=== PATIENT | male | born 1940 | race Caucasian/White ===

== ENCOUNTER 2020-06-14 12:39 | Emergency (ER) | payer MEDICARE, SELFPAY ==
[2020-06-14] VITALS (8 sets, daily range): BP systolic 77–100; BP diastolic 58–81; PULSE 98–136; RESP 15–26; TEMP 36.4–37.1; O2SAT 95–99
--- NOTE | ~2020-06-14 | CT_ITS ---
EXAMINATION: CT chest abdomen pelvis wo con DATE: 06/14/2020 14:02 INDICATION: Abdominal pain. Altered mental status. TECHNIQUE: Computed tomography (CT) of the chest, abdomen, and pelvis was performed without intraveno us contrast. Automated exposure control and iterative reconstruction technique were employed. The dos e-length product was 1693.67 mGy-cm. COMPARISON: CT abdomen and pelvis 06/13/2011 FINDINGS: CHEST CT: A calcified right lung nodule and calcified right hilar and mediastinal lymph nodes are consistent wi th old granulomatous disease. There is mild atelectasis bilaterally. Cardiomegaly is noted. There are changes of mitral valve replacement. There are coronary artery calcifications. There are changes of coronary bypass grafting. No pericardial effusion. There is a small sliding hiatal hernia. There are bridging endplate osteophytes at multiple levels in the spine, consistent with diffuse idiopathic ske letal hyperostosis (DISH). ABDOMEN/PELVIS CT: There is diffuse hepatic steatosis. The gallbladder, spleen, pancreas, adrenal glands, and kidneys ar e normal. There is an 8.3 cm fusiform infrarenal aortic aneurysm with surrounding hematoma in the ret roperitoneum, predominantly on the right, consistent with rupture. The prostate is mildly enlarged. T here is diverticulosis of the colon without evidence of diverticulitis. There are no dilated loops of bowel. The appendix is normal. There are no pathologically enlarged lymph nodes. There is a small vo lume of hemoperitoneum in the pelvis and right paracolic gutter. There is severe lumbar spondylosis. IMPRESSION: 1. 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 I called this result to Dr. Kenny. Reviewed, dictated and finalized at location A. SHOP SUPERVISOR
--- NOTE | ~2020-06-14 | CT_ITS ---
EXAMINATION: CT brain wo con DATE: 06/14/2020 14:02 INDICATION: Altered mental status. TECHNIQUE: Computed tomography (CT) of the head was performed without intravenous contrast. The mA wa s adjusted according to patient size. Iterative reconstruction technique was employed. The dose-lengt h product was 605.33 mGy-cm. COMPARISON: None FINDINGS: There are scattered areas of low attenuation in the cerebral white matter. There are old la cunar infarcts in the bilateral basal ganglia. There is no intracranial hemorrhage, acute infarction, or abnormal intracranial mass lesion. The ventricles are normal in size. There are likely changes of ocular lens replacement surgeries. There is mucosal thickening in the paranasal sinuses. There is a trace left mastoid effusion. IMPRESSION: 1. Old lacunar infarcts in the bilateral basal ganglia. 2. Extensive nonspecific cerebral white matter disease, which likely represents chronic small vessel ischemic disease. Reviewed, dictated and finalized at location A. COLORIST
--- NOTE | 2020-06-14 12:55 | ED.AMS ---
HPI - Altered Mental Status General Chief Complaint: Altered Mental Status Stated Complaint: AMS Time Seen by Provider: 06/14/20 12:51 Source: EMS Mode of arrival: EMS Limitations: altered mental status History of Present Illness HPI narrative: Patient is an 79-year-old male brought in by EMS due to altered mental status. Patient is nonverbal. According to EMS told him that he was last known well 3 days ago and started to deteriorate from then on, described as weakness. EMS states that when they picked the patient up his oxygen sat was in the 70s was placed on nonrebreather and brought the saturating back up to 90s. Patient is nonverbal unable to get any history from the patient. Patient is on an oral anticoagulant, Eliquis. Related Data Home Medications Medication Instructions Recorded Confirmed apixaban [Eliquis] 5 mg PO 06/14/20 atorvastatin 80 mg PO DAILY 06/14/20 lisinopril 10 mg PO DAILY 06/14/20 Allergies Allergy/AdvReac Type Severity Reaction Status Date / Time nickel AdvReac Intermediate Rash Verified 06/14/20 14:08 Chocolate Allergy Intermediate Diarrhea Uncoded 06/14/20 14:08 Review of Systems Review of Systems: ROS unobtainable: Yes unobtainable due to mental status PMFSH Family History Family History Father Cerebrovascular accident Mother Family history of cardiac disorder Other Asthma Family history of allergic disorder Family history of cardiovascular disease Family history of malignant neoplasm Social History Social History Alcohol intake: current Gender identity (if verbalized by the patient): Male Exam Const: General: no acute distress, alert and awake Other: Moderate distress, alert and awake HENMT: Head: normal to inspection, no contusions, no hematomas and no lacerations Ears: external ears normal General nose exam: Normal external nose present, Normal nares present and No nasal discharge present Face and sinus: normal facial exam Mouth: Yes Normal oral and palatal mucosa present, Yes lip normal, Yes tongue normal and Yes oropharynx normal Throat: posterior oropharynx normal, tonsils normal and uvula midline Eyes: General: appearance normal, both eyes and all related structures Pupils: Equal, round and reactive pupils present EOM: EOMs intact bilaterally Neck: Neck: normal visual inspection, full ROM, no lymphadenopathy and no meningeal signs Chest: Chest palpation & inspection: normal inspection of the chest Resp: Effort & Inspection: normal respiratory effort, able to speak in complete sentences, no respiratory distress, no retractions, tachypneic (Mild) and no use of accessory muscles Auscultation: clear to auscultation bilaterally, no crackles, no rales, no rhonchi, no wheezes and breath sounds absent Cardio: Rate: tachycardic Rhythm: abnormal rhythm irregularly irregular GI: Inspection: normal to inspection GI Palp: No abdominal tenderness, Yes Soft to palpation, No Tenderness to palpation present (GI), No Guarding due to palpation present (GI), No Rigid due to palpation and No Rebound tenderness present Auscultation: normal bowel sounds Skin: General skin exam: normal color, no rashes or lesions noted, elasticity normal and turgor normal Neuro: General: tone normal, moves all extremities and No confusion Cranial nerves: Yes Equal, round and reactive pupils present Sensory Exam: No Sensory deficit (Neuro) Other: Patient is nonverbal unable to follow any commands Extrem: General: normal to inspection, full ROM and capillary refill normal Psych: Appearance: grossly normal and well kempt Course Course Emergency Course: Patient reexamined now alert and awake states that he was having some abdominal pain pain and back pain that started 3 days ago. Vital Signs Vital signs: Vital Signs Temperature 36.6 C 06/14/20 12:41 Pulse Rate 129
[2020-06-14 14:05] LABS: Basophils Percent Auto 0.3 % (0.2-1.2); Eosinophils Percent Auto 0.1 % (0-4.4); Hematocrit 36.1 % (42.0-52.0); Immature Granulocyte Absolute 0.19 K/mm3 (0.00-0.031); Immature Granulocyte Percent A 1.7 % (0-0.5); Lymphocytes Absolute Auto 0.85 K/mm3 (0.9-3.2); Lymphocytes Percent Auto 7.6 % (18.3-44.2); Mean Corpuscular HGB Conc 33.2 g/dl (32-36); Mean Corpuscular Volume 102.3 fl (80-100); Mean Platelet Volume 10.4 fl (7.4-10.4); Monocytes Absolute Auto 0.6 K/mm3 (0.1-0.6); Monocytes Percent Auto 5.4 % (2.6-8.5); Neutrophils Absolute Auto 9.5 K/mm3 (1.3-6.7); Neutrophils Percent Auto 84.9 % (45.5-73.1); Platelet Count Result 167 k/mm3 (150-375); Red Blood Count 3.53 M/mm3 (4.6-6.20); Red Cell Distribution Width 12.4 % (11.5-14.5); White Blood Count 11.2 K/mm3 (4.5-10.0)
--- NOTE | 2020-06-14 14:09 | PC.NURSE ---
called [facility] evac to see if a helicopter was available to transfer patient. [facility] evac is now on standby
--- NOTE | 2020-06-14 14:14 | PC.NURSE ---
Pt maintain O2 above 98% on non rebreather, switched to NC at 4 L.
[2020-06-14 14:17] LABS: INR 1.2
[2020-06-14 14:18] LABS: Partial Thromboplastin Time 30.1 SECONDS (22.3-36.8)
[2020-06-14 14:21] LABS: Lactic Acid Reflex 8.3 mmol/L (0.7-2.1)
[2020-06-14 14:23] LABS: Albumin Level 3.8 g/dL (3.5-5.1); Alkaline Phosphatase 55 U/L (38-126); Anion Gap 16 mmol/L (8-16); Aspartate Amino Transferase 42 U/L (17-59); Bilirubin,Total 1.6 mg/dL (0.2-1.3); Blood Urea Nitrogen 25 mg/dL (9-20); CRP 4.7 mg/dL (<1.0); Calcium 8.2 mg/dL (8.4-10.2); Carbon Dioxide 18 mmol/L (22-30); Chloride 103 mmol/L (98-107); Estimated CRCL calculation 35 ml/min; Estimated Glomerular Filt Rate 36; Glucose 213 mg/dL (75-110); Sodium 137 mmol/L (137-145)
[2020-06-14 14:26] LABS: Alanine Aminotransferase 36 U/L (4-50)
[2020-06-14 14:37] LABS: Add Urine Microscopic? YES; Appearance Urine Clear (Clear); Bilirubin Urine Negative (Negative); Blood Urine 1+ (Negative); Color Urine Yellow (Yellow); Glucose Urine UA Negative (Negative); Ketones Urine Negative (Negative); Leukocyte Esterase Ur Negative LEU/UL (Negative); Mucus Urine Rare /lpf; Nitrate Urine Negative (Negative); Protein Urine 2+ mg/dL (Negative); RBC Urine 21-50 /hpf (0-2); Specific Grav Ur 1.025 (1.001-1.035); Urobilinogen Urine Negative mg/dL (<2.0); WBC Urine 0-3 /hpf
--- NOTE | 2020-06-14 14:41 | PC.NURSE ---
has accepted patient at [facility] is on their way
[2020-06-14] MEDS: HUMAN PROTHROMBIN COMPLEX(PCC) 2,500 UNITS in PREMIXIV 0 ML 500 UNITS IV CONT (14:54)
[2020-06-14] MEDS: TUBING, BLOOD SET 1 EACH XX (14:55)
[2020-06-14] MEDS: SODIUM CHLORIDE 0.9% IV 250 ML 30 ML (14:55)
--- NOTE | 2020-06-14 15:00 | ECG_ITS ---
Measurements Intervals [place] Rate: 125 P: [place]: 0 QRS: 47 QRSD: 82 T: 33 QT: 307 QTc: 444 Interpretive Statements ATRIAL FLUTTER/TACHYCARDIA WITH RAPID VENTRICULAR RESPONSE VENTRICULAR PREMATURE COMPLEXES BORDERLINE ST-T WAVE ABNORMALITY- DIFFUSE LEADS ABNORMAL ECG Electronically Signed On 06-14-2020 15:07:00 CUSTOMER SERVICE SALES CONSULTANT by Ezekiel Zacarias D.O.
[2020-06-14 17:03] LABS: Reflex Lactic Acid Yes or No Add Lactic
== END 2020-06-14 15:24 | disposition short-term general hospital (02) ==
PROVIDERS: Emergency Provider Emergency Medicine; PCP Family Medicine
DX: I71.3 Abdominal aortic aneurysm, ruptured (principal); R41.82 Altered mental status, unspecified; Z79.01 Long term (current) use of anticoagulants
CPT/HCPCS: 36415; 36430; 51702; 70450; 71250; 74176; 80053; 81001; 83605; 85025; 85610; 85730; 86140; 86920; 87040; 93005; 96361; 96365; 96367; 99291; C9132; J0696; J7050; J7120; P9016

== ENCOUNTER 2021-01-18 12:53 | Outpatient (CLI) | payer MEDICARE, SELFPAY ==
[2021-01-18 13:41] LABS: Hematocrit 39.9 % (42.0-52.0); Hemoglobin 13.1 g/dL (14.0-18.0); Mean Corpuscular HGB Conc 32.8 g/dl (32-36); Mean Corpuscular Hemoglobin 32.1 pg (26-34); Mean Corpuscular Volume 97.8 fl (80-100); Mean Platelet Volume 10.3 fl (7.4-10.4); Platelet Count Result 159 k/mm3 (150-375); Red Blood Count 4.08 M/mm3 (4.6-6.20); Red Cell Distribution Width 13.6 % (11.5-14.5); White Blood Count 5.7 K/mm3 (4.5-10.0)
[2021-01-18 14:00] LABS: Alanine Aminotransferase 17 U/L (4-50); Albumin Level 4.1 g/dL (3.5-5.1); Alkaline Phosphatase 76 U/L (38-126); Anion Gap 6 mmol/L (8-16); Aspartate Amino Transferase 25 U/L (17-59); Bilirubin,Total 0.8 mg/dL (0.2-1.3); Blood Urea Nitrogen 28 mg/dL (9-20); Calcium 9.4 mg/dL (8.4-10.2); Carbon Dioxide 29 mmol/L (22-30); Chloride 107 mmol/L (98-107); Estimated Glomerular Filt Rate 58; Glucose 109 mg/dL (65-110); Potassium 3.9 mmol/L (3.4-5.0); Sodium 142 mmol/L (137-145)
== END 2021-01-18 12:54 | disposition home or self-care (01) ==
PROVIDERS: PCP Family Medicine; Visit Provider Internal Medicine Cardiovascular Disease
DX: I25.10 Atherosclerotic heart disease of native coronary artery without angina pectoris (principal)
CPT/HCPCS: 36415; 80053; 85027

== ENCOUNTER 2022-10-23 15:48 | Outpatient (CLI) | payer MEDICARE, SELFPAY ==
[2022-10-23 16:42] LABS: Hematocrit 41.6 % (42.0-52.0); Hemoglobin 13.8 g/dL (14.0-18.0); Mean Corpuscular HGB Conc 33.2 g/dl (32-36); Mean Corpuscular Hemoglobin 32.9 pg (26-34); Mean Corpuscular Volume 99.3 fl (80-100); Mean Platelet Volume 10.3 fl (7.4-10.4); Platelet Count Result 153 k/mm3 (150-375); Red Blood Count 4.19 M/mm3 (4.6-6.20); White Blood Count 6.9 K/mm3 (4.5-10.0)
[2022-10-23 16:54] LABS: Alanine Aminotransferase 22 U/L (6-50); Albumin Level 4.3 g/dL (3.5-5.1); Alkaline Phosphatase 71 U/L (38-126); Anion Gap 7 mmol/L (8-16); Aspartate Amino Transferase 29 U/L (17-59); Bilirubin,Total 0.7 mg/dL (0.2-1.3); Blood Urea Nitrogen 31 mg/dL (9-20); Calcium 8.9 mg/dL (8.4-10.2); Carbon Dioxide 28 mmol/L (22-30); Chloride 106 mmol/L (98-107); Cholesterol 137 mg/dL (0-200); Estimated Glomerular Filt Rate > 60; Glucose 101 mg/dL (65-110); HDL Direct 39 mg/dL; Potassium 4.7 mmol/L (3.4-5.0); Sodium 141 mmol/L (137-145); Triglycerides 125 mg/dL (<150)
[2022-10-23 17:05] LABS: LDL Cholesterol Direct 73 mg/dL
== END 2022-10-23 15:49 | disposition home or self-care (01) ==
LOC: ANHLAB 15:50
PROVIDERS: PCP Family Medicine; Visit Provider Internal Medicine Cardiovascular Disease
DX: I25.10 Atherosclerotic heart disease of native coronary artery without angina pectoris (principal); Z79.01 Long term (current) use of anticoagulants
CPT/HCPCS: 36415; 80053; 80061; 85027

== ENCOUNTER 2023-03-14 14:10 | Outpatient (CLI) | payer MEDICARE, SELFPAY ==
--- NOTE | ~2023-03-14 | US_ITS ---
Procedure: Duplex Doppler examination of the bilateral carotids. Indication: Amaurosis fugax Technique: Real time, color-flow and pulse wave Doppler examination of the bilateral carotids was performed. Findings: Lin scale ultrasonography of the right neck demonstrated minimal plaque at the right carotid bulb re gion. There was demonstration of normal color-flow and Doppler waveforms within the right common, int ernal and external carotid arteries. The peak systolic velocities in the right common, internal and e xternal carotid arteries were demonstrated to be 85 cm/sec, 63 cm/sec and 92 cm/sec respectively. The right ICA/CCA ratio was 0.7.The proximal right internal carotid artery demonstrates 0% stenosis rela tive to the normal distal artery lumen diameter. Lin scale sonography of the left neck demonstrated minimal plaque at the proximal left internal bach tid artery/carotid bulb. There was demonstration of normal color-flow and wave forms within the left common, internal and external carotid arteries. The peak systolic velocities in the left common, inte rnal and external carotid arteries were demonstrated to be 67cm/sec, 80 cm/sec and 126 cm/sec respect ively. The left ICA/CCA ratio was 1.3. The proximal left internal carotid artery demonstrates 0% sten osis relative to the normal distal artery lumen diameter. Incidental note is made of a 4.7 x 2.7 x 3.2 cm lobulated, hypoechoic predominantly solid mass in the right parotid gland with small cystic components. There is a similar appearing mass in the left paro tid gland, measuring 2.6 x 1.7 x 1.9 cm. There was antegrade flow demonstrated in the bilateral vertebral arteries. Impression: No hemodynamically significant stenosis of the bilateral internal carotid arteries. Antegrade flow in the bilateral vertebral arteries. Bilateral parotid gland masses, as detailed above. Bilaterality and sonographic appearance is most crawford ggestive of bilateral Warthin's tumors. Note: The methodology used is an indirect measurement validated against a direct method (such as the NASCET criteria) that compares diameters at the stenosis to the distal ICA. Reviewed, dictated and finalized at [facility]. Impression: No hemodynamically significant stenosis of the bilateral internal carotid arter ies. Antegrade flow in the bilateral vertebral arteries. Bilateral parotid gland masses, as detailed above. Bilaterality and sonographic appearance is most suggestive of bilateral Warthin's tumors. Note: The methodology used is an indirect measurement validated against a direct meth od (such as the NASCET criteria) that compares diameters at the stenosis to the distal ICA.
== END 2023-03-14 14:11 | disposition home or self-care (01) ==
PROVIDERS: PCP Family Medicine; Visit Provider Nurse Practitioner Adult Health
DX: G45.3 Amaurosis fugax (principal)
CPT/HCPCS: 93880

== ENCOUNTER 2024-09-12 02:18 | Emergency (ER) | payer MEDICARE, SELFPAY ==
[2024-09-12] VITALS (18 sets, daily range): BP systolic 132–186; BP diastolic 83–119; PULSE 75–89; RESP 13–22; TEMP 36.9–37; O2SAT 95–100
--- NOTE | ~2024-09-12 | CT_ITS ---
CT head without contrast Indication: Weakness Technique: Serial scans were obtained through the brain without the administration of contrast. Dose reduction technique was used on this scan by utilizing automated exposure control and iterative recon struction technique. The dose-length product (DLP) was 681.00 mGy-cm. Findings: There is no evidence of intracranial hemorrhage, mass lesion, or acute infarct. The ventri cles and subarachnoid spaces are dilated, consistent with mild atrophy. Low attenuation regions are seen within the periventricular white matter bilaterally, likely representing changes from chronic mi crovascular ischemic disease. There is no evidence of edema, mass effect or midline shift. The visu alized paranasal sinuses and mastoid air cells are clear. Impression: No intracranial hemorrhage, mass, or acute infarct. Atrophy and chronic white matter changes, as above. Reviewed, dictated and finalized at location . Impression: No intracranial hemorrhage, mass, or acute infarct. Atrophy and chronic white matter changes, as above.
--- NOTE | ~2024-09-12 | CT_ITS ---
Noncontrast CT scan of the cervical spine Technique: Multiple contiguous axial [address] images of the cervical spine were obtained and rec onstructed in 2D sagittal and coronal planes on the acquisition scanner. Dose reduction technique was used on this scan by utilizing automated exposure control, adjustment of the mA and/or kV according to patient size. The dose-length product (DLP) was 525.84 mGy-cm. Clinical History: Pain Findings: No acute fracture. There is partial fusion across the C2-C3 disc space. There is advanced degenerative disc narrowing at C3-C4, C6-C7, and C7-T1. There is minimal grade 1 anterolisthesis of C 4 over C5. There is severe left neural foraminal narrowing at C3-C4 left facet arthropathy and left f oraminal disc osteophyte complex. There is left neural foraminal narrowing at C4-C5, left foraminal o steophyte and left facet arthropathy worse than right. There is severe right neural foraminal narrowi ng at C5-C6, with right foraminal osteophyte complex and right facet arthropathy worse than left. The re is bilateral neural foraminal narrowing, right worse than left, at C6-C7, with bilateral facet art hropathy. No prevertebral soft tissue swelling. Impression: No acute fracture. Minimal grade 1 anterolisthesis of C4 over C5. Severe degenerative spondylosis, as above. Reviewed, dictated and finalized at [facility]. Impression: No acute fracture. Minimal grade 1 anterolisthesis of C4 over C5. Severe degenerative spondylosis, as above.
--- NOTE | ~2024-09-12 | CT_ITS ---
Clinical Indication: Weakness, elevated troponin CT Scan of the Chest, Abdomen, and Pelvis with Contrast: Technique: Contiguous sections were acquired throughout the chest, abdomen, and pelvis after intraven ous administration of 100 cc of Omnipaque 350. Dose reduction technique was used on this scan by nadir key automated exposure control and iterative reconstruction technique. The dose-length product (DL P) was 1996.62 mGy-cm. Findings: There is no evidence of any significant mediastinal, hilar or axillary lymphadenopathy. The mediastin al soft tissues appear normal. No pulmonary embolus. No aortic aneurysm or dissection. There is no evidence of pleural or pericardial effusion. The lungs are clear, aside from calcified right basilar granuloma. The liver, spleen, pancreas, adrenals and kidneys are within normal limits. Suspected tiny gallstones and/or minimal sludge. There is a 10.9 cm infrarenal abdominal aortic aneurysm with aortic stent gra ft in place. Small amount of contrast is present within the aneurysm sac posteriorly (axial image 97 for example), suspicious for endoleak. No lymphadenopathy. No bowel obstruction or bowel wall thickening. There is no evidence to suggest acute appendicitis. Diffuse urinary bladder wall thickening is compatible chronic trabeculation. Prostate gland is enlarg ed, indenting the bladder base. Posterior left urinary bladder diverticulum is present. Impression: 10.9 cm infrarenal abdominal aortic aneurysm with aortic stent graft in place. Aneurysm sac is signif icantly increased in size since prior exam from 2020, with evidence of endoleak. Dedicated endoleak e valuation recommended. Minimal cholelithiasis/gallbladder sludge. Enlarged prostate gland with probable chronic bladder wall trabeculation. Correlate for cystitis. Reviewed, dictated and finalized at [facility]. Impression: 10.9 cm infrarenal abdominal aortic aneurysm with aortic stent graft in place. Aneurysm sac is significantly increased in size since prior exam from 2020, wit h evidence of endoleak. Dedicated endoleak evaluation recommended. Minimal cholelithiasis/gallbladder sludge. Enlarged prostate gland with probable chronic bladder wall trabeculation. Corre late for cystitis.
--- NOTE | ~2024-09-12 | XR_ITS ---
Portable chest x-ray Comparison: 08/12/2010 Clinical History: Weakness Findings: Lungs are clear, without focal consolidation or pleural effusion. Cardiomediastinal silho uette is nonenlarged, status post valve replacement. Bones and soft tissues are unremarkable. Impression: Clear lungs. Reviewed, dictated and finalized at location . Impression: Clear lungs.
--- NOTE | 2024-09-12 02:31 | ECG_ITS ---
Test Date: 2024-09-12 04:40:19 Measurements Intervals [place] Rate: 82 P: 0 ND: 0 QRS: 66 QRSD: 87 T: 0 QT: 394 QTc: 461 Interpretive Statements ATRIAL FLUTTER WITH NORMAL VENTRICULAR RESPONSE LEFT VENTRICULAR HYPERTROPHYWITH ST-T CHANGE CANNOT R/O SEPTAL INFARCT, AGE INDETERMINATE ABNORMAL ECG No previous ECG available for comparison Electronically Signed On 09-12-2024 06:27:36 CDT by Ezekiel Zacarias D.O.
[2024-09-12 03:01] LABS: Basophils Percent Auto 0.4 % (0.2-1.2); Eosinophils Absolute Auto 0.1 K/mm3 (0-0.3); Eosinophils Percent Auto 0.6 % (0-4.4); Hematocrit 37.2 % (42.0-52.0); Hemoglobin 12.3 g/dL (14.0-18.0); Immature Granulocyte Absolute 0.03 K/mm3 (0.00-0.031); Immature Granulocyte Percent A 0.3 % (0-0.5); Lymphocytes Absolute Auto 0.57 K/mm3 (0.9-3.2); Lymphocytes Percent Auto 5.8 % (18.3-44.2); Mean Corpuscular HGB Conc 33.1 g/dl (32-36); Mean Corpuscular Hemoglobin 31.8 pg (26-34); Mean Corpuscular Volume 96.1 fl (80-100); Mean Platelet Volume 10.5 fl (7.4-10.4); Monocytes Absolute Auto 0.8 K/mm3 (0.1-0.6); Monocytes Percent Auto 8.1 % (2.6-8.5); Neutrophils Absolute Auto 8.3 K/mm3 (1.3-6.7); Neutrophils Percent Auto 84.8 % (45.5-73.1); Platelet Count Result 172 k/mm3 (150-375); Red Blood Count 3.87 M/mm3 (4.6-6.20); Red Cell Distribution Width 13.3 % (11.5-14.5); White Blood Count 9.8 K/mm3 (4.5-10.0)
[2024-09-12 03:09] LABS: Lactic Acid Reflex 1.1 mmol/L (0.7-2.0)
[2024-09-12 03:10] LABS: Alanine Aminotransferase 40 U/L (6-50); Albumin Level 3.8 g/dL (3.5-5.1); Alkaline Phosphatase 71 U/L (38-126); Anion Gap 12 mmol/L (4-12); Aspartate Amino Transferase 81 U/L (17-59); Blood Urea Nitrogen 53 mg/dL (9-20); Carbon Dioxide 23 mmol/L (22-30); Chloride 105 mmol/L (98-107); Estimated Glomerular Filt Rate 33; Glucose 132 mg/dL (65-110); Lipase 42 U/L (23-300); Magnesium 1.9 mg/dL (1.6-2.3); Sodium 140 mmol/L (137-145)
--- OUTSIDE RECORDS SUMMARY | 2024-09-12 03:10 | XMS_ITS | Clinical Summary ---
Author Organization [facility] [address] Address [address] [place] [address] Care Team Providers Care Public Address Servicer Name Role Phone Carmela Whitney MD Primary Care Provider + Allergies Active Allergy Reactions Criticality Noted Date Comments Chocolate Other (See comments) Low Reaction: CONGESTION, Mold Shortness of breath High 12/11/2016 Per patient, asthmatic shock. Nickel Rash Medium Reaction: RASH Medications potassium 99 mg tablet take 1 by Oral route every day 0 0 08/17/2014 Active apixaban (ELIQUIS) 5 mg tabletIndication s:Typical atrial flutter (HCC) Take 1 tablet (5 mg total) by mouth 2 (two) times a day. 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 Dizziness 03/28/2017 Bradycardia 03/28/2017 Assessment & Plan (04/17/2017 8:46 PM PRODUCTION GEAR CUTTER): Has had some episodic mild bradycardia but home monitor did not show any severe bradycardia. Episodic dizziness but this is mostly positional. Permanent atrial fibrillation 12/11/2016 Assessment & Plan (04/17/2017 8:46 PM PRODUCTION GEAR CUTTER): Patient has atrial fibrillation and some AFib/flutter, with a heart rate that is actually better than what I feared from last office visit. Average heart rate in the 80s. May be mildly symptomatic. Offered cardioversion to see if we can restore sinus rhythm and if that would help patient feel better. We could also continue current therapy, or again refer for ablation of atrial flutter. Patient does not want any procedures as invasive as ablation. He decided he would prefer to continue current therapy as he could manage pretty well. Assessment & Plan (12/11/2016 7:53 PM CDT): New onset atrial flutter, an incidental finding during echo exam today. EKG today confirms typical atrial flutter, heart rate 81, nonspecific ST changes. Heart rate is controlled. Although the patient is feeling poor in general, I do not elicit symptoms of dyspnea, heart failure, palpitations etc so I suspect his symptoms are not related to the atrial flutter. Thus I will not pursue cardioversion at this time. However he is at risk of cardioembolic events and needs anticoagulation. All this was reviewed with the patient including risks and benefits of anticoagulation. I wonder if he is a candidate for atrial flutter ablation? 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 Obstructive sleep apnea syndrome 02/23/2016 Overview (09/06/2016): WALTER (obstructive sleep apnea) Coronary artery disease invo lving [place] coronary artery of [place] heart without angina pectoris 02/23/2016 Overview (09/06/2016): CAD in [place] artery Assessment & Plan (04/17/2017 8:48 PM PRODUCTION GEAR CUTTER): History of CABG, doing well, no angina. Normal LV function. Assessment & Plan (12/11/2016 7:49 PM CDT): 2013:: MILES to LAD at the time of mitral valve repair Coronary artery disease is unchanged. No angina. Regular aerobic exercise. Cardiac status will be reassessed in 1 month. Hx of CABG 02/23/2016 Overview (09/07/2016): Hx of CABG Hypertensive heart disease without congestive he art failure 02/23/2016 Overview (09/07/2016): Hypertensive heart disease without CHF Assessment & Plan (12/11/2016 7:50 PM CDT): BP running a little high today History of diastolic dysfunction and LVH Hypercholesterolemia 02/23/2016 Overview (09/07/2016): Hypercholesteremia Assessment & Plan (04/17/2017 8:49 PM PRODUCTION GEAR CUTTER): Takes atorvastatin Assessment & Plan (12/11/2016 7:51 PM CDT): 03/2016: Cholesterol 150, LDL 82; I increased atorvastatin after that. Noncompliance with treatment 02/23/2016 Overview (09/07/2016): Noncompliance H/O mitral valve repair 08/25/2013 Overview (09/06/2016): H/O mitral valve repair Assessment & Plan (04/17/2017 8:48 PM PRODUCTION GEAR CUTTER): 2014: Successful mitral valve repair Echo 2017: Intact mitral valve repair, EF 65% Assessment & Plan (12/11/2016 7:48 PM CDT): Two thousand fourteen: Successful mitral valve repair Echo today: Intact mitral valve repair, EF 65% Mitral valve insufficiency 05/13/2013 Chronic obstructive pulmonary disease 04/14/2013 Overview (09/06/2016): COPD (chronic obstructive pulmonary disease) Resolved Problems Problem Noted Date Diagnosed Date Resolved Date Visual field defect 07/02/2023 07/02/19 24 Dizziness 11/06/2018 11/06/2018 History of heart valve repair 02/23/2016 03/28/2017 Overview (09/06/2016): S/P MVR (mitral valve repair) Altered mental status 02/23/20162016 Overview (09/07/2016): Altered mental status, unspecified altered mental status type Hyperlipidemia 08/17/2014 03/28/2017 Overview (09/07/2016): Hyperlipidemia Encounters Date Type Department Care Team Description 07/10/2024 2:00 PM PRODUCTION GEAR CUTTER Office Visit [facility] [address] [place] [address] Jeremy Russo MD Coronary artery disease involving [place] coronary artery of [place] heart without angina pectoris (Primary Dx); H/O mitral valve repair; Hx of CABG; Permanent atrial fibrillation (HCC); Chronic anticoagulation; Ruptured abdominal aortic aneurysm (AAA), unspecified part (HCC); History of repair of aneurysm of abdominal aorta using endovascular stent graft; Hypercholesterolemia; Essential hypertension from Last 3 Months Surgical History Surgery Date Site/Laterality Comments HERNIA REPAIR Hernia repair Medical History Medical History Date Comments Hx Other Medical COPD: Asthma an d Emphysema, Dr. Suarez Hx Other Medical Sleep Apnea, CP AP Family History Medical History Relation Name Comments Other Father SVA and aneurys m; Cause of : SVA and aneurysm Other Mother Old age; Cause of : Old age Other Sister 2 Older sister werner s ICD; Other Sister 3 Has mental anali rdation and now Alzheimer's; Relation Name Status Comments Father (Age 64) Mother (Age 84) Sister 1 Alive Sister 2 Sister 3 Social History Tobacco Use Types Packs/Day Years Used Date Smoking Tobacco: Former Smokeless Tobacco: Never Tobacco Cessation:Counseling Given: Not Answered Alcohol Use Standard Drinks/Week Comments Yes 0 (1 standard drink = 0.6 oz pur e alcohol) 2 drinks per week maximum Sex and Gender Information Value Date Recorded Sex Assigned at Not on file Legal Sex Male 7:26 PM PRODUCTION GEAR CUTTER Gender Identity Not on file Sexual Orientation Not on file Obstetrics History Last Filed Vital Signs Vital Sign Reading Time Taken Comments Blood Pressure 140/70 07/10/2024 2:12 PM PRODUCTION GEAR CUTTER Pulse 48 07/10/2024 2:12 PM PRODUCTION GEAR CUTTER Temperature 37 C (98.6 F) 01/20/2020 11:15 AM CDT Respiratory Rate 96 12/25/2022 2:42 PM CDT Oxygen Saturation 97% 07/10/2024 2:12 PM PRODUCTION GEAR CUTTER Inhaled Oxygen Concentration - - Weight 90.3 kg (199 lb) 07/10/2024 2:12 PM PRODUCTION GEAR CUTTER Height 182.9 cm (6') 07/10/2024 2:12 PM PRODUCTION GEAR CUTTER Body Mass Index 26.99 07/10/2024 2:12 PM PRODUCTION GEAR CUTTER Plan of Treatment Health Maintenance Due Date Last Done Comments Depression Screening 1940 Fall Risk Assessment 1940 DTaP/Tdap/Td Vaccine (1 - Tdap) 10/15/1950 Hepatitis B Screening 10/15/1957 Zoster Vaccine (1 of 2) 10/15/1989 Well Visit 65+ 10/15/2004 Pneumococcal vaccine 65+ (2 of 2 - PCV) 04/12/2016 04/12/2015 Influenza Vaccine (Season Ended) 2025 03/07/2016, 04/12/2015, 04/08/2014 Insurance [facility] MEDICARE ADVANTAGE Member Subscriber Plan / Payer (Ef fective 2022-Present) Name:Noe Huizar Relation to Subscriber:Self Name:Noe Huizar Payer ID:[id number] (NAIC) Type:[facility] MED[facility] Address: [place] [phone] [facility] MDCR HMO REF [facility] MED[employer] ADVANTAGE Care Teams Public Address Servicer Relationship Specialty Start Date End Date Carmela Whitney MD PCP - General 02/09/15
--- OUTSIDE RECORDS SUMMARY | 2024-09-12 03:10 | XMS_ITS | Clinical Summary ---
Author Organization [facility] Address [address] [place] [address] Care Team Providers Care Labor Representative Name Role Phone Jennifer Gillis MD Primary Care Provider + Allergies Active Allergy Reactions Criticality Noted Date Comments Aspirin Other (see comment) 06/14/2020 Not stated Chocolate Other (see comment) Low 12/20/2023 Reaction: CONGESTION, Codeine Other (see comment) 06/14/2020 Not stated Molds & Smuts Shortness of Breath High 12/11/2016 Per patient, asthmatic shock. Nickel Rash Medium 12/20/2023 Reaction: RASH Medications fluticasone-salm eterol (ADVAIR DISKUS) 100-50 MCG/ACT inhaler Inhale 1 puff into the lungs 2 (two) times daily. Active multi vitamin/minerals (CENTRUM ADULTS) tablet Take 1 tablet by mouth daily. Active Active Problems Problem Noted Date Diagnosed Date Vitamin D deficiency 12/25/2023 CKD (chronic kidney disease), stage III 12/21/19 24 Overview (12/21/2023): GFR 50. Mixed hyperlipidemia 12/20/2023 Overview (12/20/2023): Takes atorvastatin. Assessment & Plan (12/20/2023 3:04 PM CDT): Ordered lipid panel and CMP to evaluate control. Continue atorvastatin. Essential hypertension 12/20/2023 Overview (12/20/2023): Patient was taking lisinopril but medication ran out after Dr. Whitney left. He has not resumed medication. Does not check blood pressures at home. Assessment & Plan (12/20/2023 3:03 PM CDT): Not controlled. Stressed the importance of remaining on lisinopril 40 mg daily. Refill provided. BMP ordered. Warthin's tumor 07/02/2023 Balance disorder 10/23/2022 Diastolic dysfunction, left ventricle 06/15/2020 Overview (12/25/2023): Last echo 11/2014, EF 56% Ruptured abdominal aortic aneurysm (AAA) ([facility]) 06/14/2020 Overview (12/20/2023): 06/2020 s/p endovascular repair by Dr. Joy at [facility] Assessment & Plan (12/20/2023 3:05 PM CDT): Has not been able to follow-up with [facility] for several years since [place]. Chronic anticoagulation 04/17/2017 Overview (12/20/2023): Last Assessment & Plan: Compliant with Eliquis, no bleeding problems. Longstanding persistent atri al fibrillation ([facility]) 12/11/2016 Overview (12/20/2023): He is not on a rate controlling medication but pulse is low 50 bpm. He has a history of bradycardia and therefore is not on a beta-milla. He takes Eliquis and tolerates this well. Assessment & Plan (12/20/2023 3:04 PM CDT): Rate controlled without medication. Continue Eliquis. Ordered CBC. 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 Assessment & Plan (08/26/2024 3:36 PM CDT): Discussed that he really no longer has decision-making abilities. His power of horticultural worker to their knowledge is not complete but we will check records with [facility] where he may have completed it prior to his aneurysm surgery. Discussed that otherwise he will need to pursue establishing guardianship through the court system. He is now unable to drive and discussed the safety concerns surrounding this. I expressed increasing concern about his living at home with only his to care for him. Family is working on getting in-home care to assist her in his management. He has been noncompliant with all medications as it relates to his A-fib, hypertension, hyperlipidemia. He is unlikely to benefit from donepezil at this time. We discussed that they are essentially pursuing comfort measures for him despite not being enrolled in hospice. Stressed the importance of safety measures to ensure that he is cared for. We will check his TSH, B12 to ensure these are not contributing to his confusion. Also checking BMP. Assessment & Plan (02/26/2024 3:57 PM CDT): Recommend against driving. Recommend he and his have discussions about shelter care in light of his diagnosis. Pt requested I call his step-son, Christopher, to update on his new diagnosis and relay concerns. Spoke with Christopher and relayed concerns. He will work with his family to try to make sure they have resources. Assessment & Plan (12/20/2023 3:05 PM CDT): Will consider slums testing in the future. Patient appears cognitively intact today. 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 Normal LV function. Obstructive sleep apnea syndrome 02/23/2016 Overview (12/20/2023): WALTER (obstructive sleep apnea). Pt does not use the machine. History of mitral valve repair 07/21/2013 Overview (12/20/2023): H/O mitral valve repair Last Assessment & Plan: 2013: Successful mitral valve repair Echo 2017: Intact mitral valve repair, EF 65% Hx of CABG 07/21/2013 Overview (12/25/2023): 2013. MILES to the LAD. Had MVP annuloplasty at the same time. Chronic obstructive pulmonary disease (CMS/HCC H HS/HCC) 04/14/2013 Overview (12/20/2023): COPD (chronic obstructive pulmonary disease) Encounters Date Type Department Care Team Description 08/26/2024 12:20 PM CDT Office Visit [address] [place] [address] Jennifer Gillis MD Follow Up (Patient is here for a 6 month follow up.) 08/26/2024 Travel 08/20/2024 Patient Outreach [facility] [address] [place] [address] [address] [place] [address] Jennifer Gillis MD Pre-visit Gap Closure from Last 3 Months Immunizations Name Administration Dates Next Due Fluzone High Dose (IIV, trivalent, 0.5mL) 2015 Influenza Adult (Generic) 03/07/2016,04/12/2015, 04/08/2014 Pneumococcal (Pneumovax 23) 04/12/2015 Family History Medical History Relation Comments No Known Problems Father No Known Problems Mother Relation Status Comments Father Mother Social History Tobacco Use Types Packs/Day Years Used Date Smoking Tobacco: Former Cigarettes Passive Smoke Exposure: Never Smokeless Tobacco: Never Tobacco Cessation:Counseling Given: Yes Comments:Smoked thru teenage years. Alcohol Use Standard Drinks/Week Comments Not Currently 0 (1 standard drink = 0.6 oz pur e alcohol) PHQ-2 Answer Date Recorded Patient Health Questionnaire-2 Score 0 02/26/2024 Sex and Gender Information Value Date Recorded Sex Assigned at Not on file Legal Sex Male 8:23 AM CDT Gender Identity Not on file Sexual Orientation Not on file Last Filed Vital Signs Vital Sign Reading Time Taken Comments Blood Pressure 136/84 08/26/2024 12:30 PM CDT Pulse 62 08/26/2024 12:30 PM CDT Temperature 37.3 C (99.2 F) 08/26/2024 12:30 PM CDT Respiratory Rate 20 02/26/2024 1:43 PM CDT Oxygen Saturation 98% 08/26/2024 12:30 PM CDT Inhaled Oxygen Concentration - - Weight 94.8 kg (209 lb) 02/26/2024 1:43 PM CDT Height 182.9 cm (6') 08/26/2024 12:30 PM CDT Body Mass Index 28.35 02/26/2024 1:43 PM CDT Plan of Treatment Upcoming Encounters Date Type Department Care Team (Late st Contact Info) Description 02/10/2025 2:00 PM CDT Office Visit [facility] [address] [phone] Jennifer Gillis MD [address] [facility] [address] [place] [phone] 02/10/2025 2:40 PM CDT Office Visit [facility] [address] [place] [address] Jennifer Gillis MD [address] [facility] [address] [place] [address] [phone] Health Maintenance Due Date Last Done Comments ASCVD Statin 1940 PHQ-2 (Physician [place]) 06/04/2024 02/26/2024 COVID-19 Vaccine (2023-2 5 season) 2025 Postponed from 02/02 (Patient Refused) DTaP, Tdap and Td Vaccines ( 1 - Tdap) 02/25/2025 Postponed from 10/15 (Patient Refused) Pneumococcal Vaccine: 65+ Ye ars (2 of 2 - PCV) 02/25/2025 04/12/2015 Postponed from 04/12 (Patient Refused) RSV Immunization or 60+ Years (1 - 1-dose 75+ series) 02/25/2025 Postponed from 10/15/2014 (Patient Refused) Zoster Vaccines (1 of 2) 02/25/2025 Pos tponed from 10/15/1989 (Patient Refused) Annual Medicare Wellness Visit 02/26/2025 02/26/2024 Meningococcal B Vaccine Aged Out No l onger eligible based on patient's age to complete this topic Meningococcal Vaccine Aged Out No eran thomas eligible based on patient's age to complete this topic RSV Immunizations Under 20 Months Aged Out No longer eligible based on patient's age to complete this topic Procedures Procedure Name Priority Date/Time Associated Diagnosis Comments COLLECTION VENOUS BLOOD VENIPUNCTURE Routine 08/26/2024 1:13 PM CDT Stage 3a chronic kidney disease (CMS/HCC) Change in weight BASIC METABOLIC PANEL Routine 08/26/2024 1:13 PM CDT Stage 3a chronic kidney disease (CMS/HCC) VITAMIN B-12 Routine 08/26/2024 1:13 PM CDT Moderate vascular dementia without behavioral disturbance, psychotic disturbance, mood disturbance, or anxiety (CMS/HCC) TSH W/REFLEX Routine 08/26/2024 1:13 PM CDT Moderate vascular dementia without behavioral disturbance, psychotic disturbance, mood disturbance, or anxiety (CMS/HCC) Change in weight PROSTATE SPECIFIC ANTIGEN,SCREENING Routine 08/26/2024 1:13 PM CDT Special screening for malignant neoplasm of prostate from Last 3 Months Results * TSH W/REFLEX (08/26/2024 1:13 PM CDT) TSH 2.397 0.358 - 3.740 uIU/ML 08/27/2024 10:10 AM CDT [facility] 08/26/2024 1:13 PM CDT Jennifer Gillis MD LABORATORY Final Re sult Performing Organization Address City/[facility]/ZIP Co de Phone Number [facility] [address] [place] [address], [place] [phone] * (ABNORMAL) VITAMIN B-12 (08/26/2024 1:13 PM CDT) [facility] VITAMIN B12 S/P/B 992(H) 193 - 986 PG/ML 08/27/2024 11:01 AM CDT [facility] 08/26/2024 1:13 PM CDT Jennifer Gillis MD LABORATORY Final Re sult Performing Organization Address [facility] Co de Phone Number [address] [address], [place] [phone] * PROSTATE SPECIFIC ANTIGEN,SCREENING (08/26/2024 1:13 PM CDT) [facility] PSA 2.42 <4.00 NG/ML 08/26/2024 7:54 PM CDT [facility] Comment: ASSAY PERFORMED BY [employer] IMMUNOASSAY METHODOLOGY USING SIEMENS DIMENSION REAGENT. PATIENT RESULTS DETERMINED BY ASSAYS FROM DIFFERENT MANUFACTURERS AND/OR BY DIFFERENT METHODS MAY NOT BE COMPARABLE. 08/26/2024 1:13 PM CDT Jennifer Gillis MD LABORATORY Final Re sult Performing Organization Address City/[facility]/ZIP Co de Phone Number [place] [id number] [place] [address], [place] [phone] * (ABNORMAL) BASIC METABOLIC PANEL (08/26/2024 1:13 PM CDT) [facility] SODIUM S/P/B 144 136 - 145 MMOL/L 08/27/2024 10:10 AM [facility] POTASSIUM S/P/B 4.4 3.5 - 5.1 MMOL/L 08/27/2024 10:10 AM [facility] CHLORIDE S/P/B 109(H) 98 - 107 MMOL/L 08/27/2024 10:10 AM [facility] CO2 28.0 21 - 32 MMOL/L 08/27/2024 10:10 AM [facility] GLUCOSE 111(H) 70 - 99 MG/DL 08/27/2024 10:10 AM [facility] BUN 35(H) 7 - 18 MG/DL 08/27/2024 10:10 AM [facility] CREATININE S/P/B 1.53(H) 0.70 - 1.30 MG/DL 08/27/2024 10:10 AM [facility] CALCIUM S/P/B 8.7 8.4 - 10.5 MG/DL 08/27/2024 10:10 AM [facility] ANION GAP 7.0 5 - 15 MMOL/L 08/27/2024 10:10 AM [facility] Comment:REFERENCE RANGE NOT ESTABLISHED OSMOLALITY (CALC) 307 MOSM/KG 025 10:10 AM [facility] Comment:REFERENCE RANGE NOT ESTABLISHED GFR ESTIMATE 45(L) >90 ML/MIN/1. 73 M2 08/27/2024 10:10 AM [facility] GFR NOTES GFR REFERENCE S: 08/27/2024 10:10 AM [facility] Comment: THE ESTIMATED GFR IS CALCULATED USING THE 2020 CKD-EPI EQUATION. THE FOLLOWING CATEGORIES FOR GRADING RENAL FUNCTION ARE RECOMMENDED BY THE INTERNATIONAL SOCIETY OF NEPHROLOGY (KDIGO 2012 CLINICAL PRACTICE GUIDELINE). G1,NORMAL OR HIGH: >89 ml/min/1.73 m2 G2,MILDLY DECREASED: 60-89 ml/min/1.73 m2 G3A,MILDLY TO MODERATELY DECREASED: 45-59 ml/min/1.73 m2 G3B,MODERATELY TO SEVERELY DECREASED: 30-44 ml/min/1.73 m2 G4,SEVERELY DECREASED: 15-29 ml/min/1.73 m2 G5,KIDNEY FAILURE: <15 ml/min/1.73 m2 08/26/2024 1:13 PM CDT us Jennifer Gillis MD LABORATORY Final Re sult Performing Organization Address City/[facility]/ZIP Co de Phone Number -[facility] [address] [place] [address], from Last 3 Months Insurance Care Teams Labor Representative Relationship Specialty Start Date End Date Jennifer Gillis MD [address] [place] [phone] PCP - General FAMILY PRACTICE 12/20/23
--- OUTSIDE RECORDS SUMMARY | 2024-09-12 03:10 | XMS_ITS | Referral Summary ---
Author Organization [facility] [address] [facility] [address] Address [address] [place] [address] Care Team Providers Care Senior Business Architect Name Role Phone Carmela Whitney MD Primary Care Provider + Encounters Date Type Department Care Team Description 07/10/2024 2:00 PM GRINDER OPERATOR EXTERNAL TOOL Office Visit [facility] [address] [facility] [address] [place] [address] Jeremy Russo MD Coronary artery disease involving ugashik coronary artery of ugashik heart without angina pectoris (Primary Dx); H/O mitral valve repair; Hx of CABG; Permanent atrial fibrillation (HCC); Chronic anticoagulation; Ruptured abdominal aortic aneurysm (AAA), unspecified part (HCC); History of repair of aneurysm of abdominal aorta using endovascular stent graft; Hypercholesterolemia; Essential hypertension from Last 3 Months Allergies Active Allergy Reactions Criticality Noted Date [...] 04/17/2017 Assessment & Plan (04/17/2017 8:47 PM GRINDER OPERATOR EXTERNAL TOOL): Compliant with Eliquis, no bleeding problems. Dizziness 03/28/2017 Bradycardia 03/28/2017 Assessment & Plan (04/17/2017 8:46 PM GRINDER OPERATOR EXTERNAL TOOL): Has had some episodic mild bradycardia but home monitor did not show any severe bradycardia. Episodic dizziness but this is mostly positional. Permanent atrial fibrillation 12/11/2016 Assessment & Plan (04/17/2017 8:46 PM GRINDER OPERATOR EXTERNAL TOOL): Patient has atrial fibrillation and some AFib/flutter, [...] sleep apnea) Coronary artery disease invo lving ugashik coronary artery of ugashik heart without angina pectoris 02/23/2016 Overview (09/06/2016): CAD in ugashik artery Assessment & Plan (04/17/2017 8:48 PM GRINDER OPERATOR EXTERNAL TOOL): History of CABG, doing well, no angina. Normal LV function. Assessment & Plan (12/11/2016 7:49 PM CDT): 2014:: MILES to LAD at the time of [...] Hypercholesteremia Assessment & Plan (04/17/2017 8:49 PM GRINDER OPERATOR EXTERNAL TOOL): Takes atorvastatin Assessment & Plan (12/11/2016 7:51 PM CDT): 03/2016: Cholesterol 150, LDL 82; I increased atorvastatin after that. Noncompliance with treatment 02/23/2016 Overview (09/07/2016): Noncompliance H/O mitral valve repair 08/25/2013 Overview (09/06/2016): H/O mitral valve repair Assessment & Plan (04/17/2017 8:48 PM GRINDER OPERATOR EXTERNAL TOOL): 2013: Successful mitral valve repair Echo 2017: [...] type Hyperlipidemia 08/17/2014 03/28/2017 Overview (09/07/2016): Hyperlipidemia Social History Tobacco Use Types Packs/Day Years Used Date Smoking Tobacco: Former Smokeless Tobacco: Never Tobacco Cessation:Counseling Given: Not Answered Alcohol Use Standard Drinks/Week Comments Yes 0 (1 standard drink = 0.6 oz pur e alcohol) 2 drinks per week maximum Sex and Gender Information Value Date Recorded Sex Assigned at Not on file Legal Sex Male 7:26 PM GRINDER OPERATOR EXTERNAL TOOL Gender Identity Not on file Sexual Orientation Not on file Last Filed Vital Signs Vital Sign Reading Time Taken Comments Blood Pressure 140/70 07/10/2024 2:12 PM GRINDER OPERATOR EXTERNAL TOOL Pulse 48 07/10/2024 2:12 PM GRINDER OPERATOR EXTERNAL TOOL Temperature 37 C (98.6 F) 01/20/2020 11:15 AM CDT Respiratory Rate 96 12/25/2022 2:42 PM CDT Oxygen Saturation 97% 07/10/2024 2:12 PM GRINDER OPERATOR EXTERNAL TOOL Inhaled Oxygen Concentration - - Weight 90.3 kg (199 lb) 07/10/2024 2:12 PM GRINDER OPERATOR EXTERNAL TOOL Height 182.9 cm (6') 07/10/2024 2:12 PM GRINDER OPERATOR EXTERNAL TOOL Body Mass Index 26.99 07/10/2024 2:12 PM GRINDER OPERATOR EXTERNAL TOOL Plan of Treatment Not on file Insurance [facility] MEDIC[facility] ADVANTAGE [facility] MED[employer] [employer]AGE Care Teams Senior Business Architect Relationship Specialty Start Date End Date Carmela Whitney MD PCP - General 02/09/15
--- OUTSIDE RECORDS SUMMARY | 2024-09-12 03:11 | XMS_ITS ---
Author Organization [facility] Address [address] [place], [place] [id number] Care Team Providers Care Hand Woodworking Sander Name Role Phone SHANNADOTTIE YañezIC Unavailable [phone] Jennifer Gillis Unavailable Unavailable REASON FOR VISIT Patient presents for at-risk foot care . The patient has painful toenails and calluses that are causing difficulty with ambulation and shoegear. The onset is gradual Encounters Encounter Location Date Provider Diagnosis [facility] [address] [place], [place] [id number] 03/31/2024 GUERLINE NAIDU Tinea unguium B35.1 ; Acquired keratosis [keratoderma] palmaris et plantaris L85.1 ; Atherosclerosis of [place] arteries of extremities with intermittent claudication, bilateral legs I70.213 ; Pain in right foot M79.671 ; Pain in left foot M79.672 and Other hereditary and idiopathic neuropathies G60.8 Assessments Encounter Date Diagnosis (ICD Code) Assessment Notes Treatment Notes Treatment Clinical Notes Section Notes 03/31/2024 Tinea unguium (ICD-10 - B35.1) Nails 1-5 Bilateral were debrided extensively with nail nippers and emery board, reducing length and girth to pink healthy tissue with any subungual debris and necrotic tissue removed 03/31/2024 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.1) A total of 3 corns or calluses, as described in the note above, were cut and pared utilizing a #15 blade 03/31/2024 Atherosclerosis of winneb[place] arteries of extremities with intermittent claudication, bilateral legs (ICD-10 - I70.213) 03/31/2024 Pain in right foot (ICD-10 - M79.671) 03/31/2024 Pain in left foot (ICD-10 - M79.672) 03/31/2024 Other hereditary and idiopathic neuropathies (ICD-10 - G60.8) Plan Of Treatment Treatment Notes Assessment Notes Tinea unguium Nails 1-5 Bilateral were debrided extensively with nail nippers and emery board, reducing length and girth to pink healthy tissue with any subungual debris and necrotic tissue removed Acquired keratosis [keratode rma] palmaris et plantaris A total of 3 corns or calluses, as described in the note above, were cut and pared utilizing a #15 blade Next Appt Details Follow Up: 10 - 12 weeks, Re ason: At-Risk Foot care, sooner if problems develop. Provider Name:GUERLINE NAIDU, 02:00:00 PM, [address], [address], [phone], Progress Notes * STARR TSAIOB:1940 ([age] yo M)Acc No.[id number]:03/31/2024 Patient: NEMESIO ORTIZN Provider: Christy Naidu DPM :1940 A ge:83 Y S ex:Male Date:03/31/2024 Address:[address] [place], [place] [id number] Subjective: * Chief Complaints: * 1 . Patient presents for at-risk foot care . The patient has painful toenails and calluses that are causing difficulty with ambulation and shoegear. The onset is gradual. * HPI: H PI: General care P atient presents to the office for at risk foot care. Patient states that their nails are thickened, elongated and painful. Patient states that it is aggravated by shoe gear. Onset is gradual. Patient denies being diabetic., Patient is taking prescription blood thinners., Date last seen by Dr. Gillis was 02/2024., Initials [facility]. * ROS: G eneral / Constitutional: Patient denies c hills, fever, weight loss. ? C ardiovascular: Patient denies e hadley, shortness of breath. ? M usculoskeletal: Patient denies w eakness, broken foot bone. ? S kin: Patient complains of f ungal nails, nail changes, calluses and corns. N eurologic: Patient denies b alance difficulty, confusion, difficulty speaking, dizziness. P atient complains of n umbness, burning/ tingling. * Medical History: M edical History Verified. * Family History: N o Family History documented.. * Medications: N one Objective: * Vitals: * Examination: P hysical Examination: General appearance: A lert, pleasant, well-nourished and in no acute distress. D ermatologic: Skin findings: S kin is thin, atrophic and lacking pedal hair.. Hypertrophic / hyperkeratotic lesion: d istal aspect of the right 3rd digit, plantar aspect of the left and right 1st metatarsal head. Nail pathology: N ails 1-5 bilateral are elongated, thick, discolored, and dystrophic with subungual debris. They are painful to palpation. ? V ascular: Dorsalis pedis pulse: 0 /4, bilateral. Posterior tibial pulse: 1 /4, bilaterally. Capillary refill: g reater than 3 seconds. Edema: N o edema bilateral. N eurologic: [place] 5.07 monofilament a bsent sensorium to rearfoot via 5.07g monofilament.. M usculoskeletal: Muscle Strength M uscle strength is 5/5 in regards to dorsiflexion, plantarflexion, inversion, and eversion in bilateral lower extremities. ? Assessment: * Assessment: 1. T inea unguium - B35.1 (Primary) 2 . A cquired keratosis [keratoderma] palmaris et plantaris - L85.1 3 . A therosclerosis of [place] arteries of extremities with intermittent claudication, bilateral legs - I70.213 4 . P ain in right foot - M79.671 5 . P ain in left foot - M79.672 6 . O ther hereditary and idiopathic neuropathies - G60.8 Plan: * Treatment: 2. A cquired keratosis [keratoderma] palmaris et plantaris Notes: A total of 3 corns or calluses, as described in the note above, were cut and pared utilizing a #15 blade * Immunizations: Immunization record has been reviewed and updated. * Follow Up: 1 0 - 12 weeks (Reason: At-Risk Foot care, sooner if problems develop.) * Billing Information: * Visit Code: 72330 Office Visit, Est Pt., Level 3. * Procedure Codes: * Sign off status: Completed true * Provider: Christy Naidu DPM Date: 1 Generated for Gladys mendoza/oJyce/Kate on: 0 09/12/2024 03:10 AM CDT History and Physical Notes * HPI (History of Present Illness) Category Sub-Category Detail Notes Category Not es HPI General care Patient presents to the office for at risk foot care. Patient states that their nails are thickened, elongated and painful. Patient states that it is aggravated by shoe gear. Onset is gradual. Patient denies being diabetic., Patient is taking prescription blood thinners., Date last seen by Dr. Gillis was 02/2024., Initials [facility] Examination Category Sub-Category Detail Notes Category Not es Dermatologic Skin findings: Skin is thin, at rophic and lacking pedal hair. Nail pathology: Nails 1-5 bilateral are elongated, thick, discolored, and dystrophic with subungual debris. They are painful to palpation Hypertrophic / hyperkeratotic lesion: di stal aspect of the right 3rd digit, plantar aspect of the left and right 1st metatarsal head Neurologic [place] 5.07 monofilamen t absent sensorium to rearfoot via 5.07g monofilament. Vascular Dorsalis pedis pulse: 0/4, bilateral Edema: No edema bilateral Capillary refill: greater than 3 secon ds Posterior tibial pulse: 1/4, bilaterally Physical Examination General appearance: Alert, pleasant, well-nourished and in no acute distress Musculoskeletal Muscle Strength Muscle strength is 5/5 in regards to dorsiflexion, plantarflexion, inversion, and eversion in bilateral lower extremities
--- OUTSIDE RECORDS SUMMARY | 2024-09-12 03:11 | XMS_ITS | Patient Health Record ---
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 kll Referral Priority Routine Medications Medication SIG (Take, Route, Frequency, Duration) Notes Start Date End Date Status Eliquis 5 MG as directed Orally Active Atorvastatin Calcium 80 MG Oral for 90 Days Active Vital Signs Height-cm 180.34 cm 09/01/2024 Weight-kg 99.79 kg 09/01/2024 Height 71.00 in 09/01/2024 Weight 220 lbs 09/01/2024 BMI 30.68 kg/m2 09/01/2024 Encounters Encounter Location Date Provider Diagnosis [facility] [address] [place], [place] [id number] 09/01/2024 GUERLINEPJ NAIDU Tinea unguium B35.1 ; Acquired keratosis [keratoderma] palmaris et plantaris L85.1 ; Atherosclerosis of [place] arteries of extremities with intermittent claudication, bilateral legs I70.213 ; Pain in right foot M79.671 and Pain in left foot M79.672 [facility] [place] [address] [place] [id number] 10/15/2023 GUERLINE SNOOK Tinea unguium B35.1 ; Acquired keratosis [keratoderma] palmaris et plantaris L85.1 ; Atherosclerosis of [place] arteries of extremities with intermittent claudication, bilateral legs I70.213 ; Pain in right foot M79.671 ; Pain in left foot M79.672 and Other hereditary and idiopathic neuropathies G60.8 [facility] [place] [address] [place] [id number] 01/14/2024 GUERLINE SNOOK Tinea unguium B35.1 ; Acquired keratosis [keratoderma] palmaris et plantaris L85.1 ; Atherosclerosis of [place] arteries of extremities with intermittent claudication, bilateral legs I70.213 ; Pain in right foot M79.671 ; Pain in left foot M79.672 and Other hereditary and idiopathic neuropathies G60.8 [facility] [place] [address] [place] [id number] 03/31/2024 GUERLINE SNOOK Tinea unguium B35.1 ; Acquired keratosis [keratoderma] palmaris et plantaris L85.1 ; Atherosclerosis of [place] arteries of extremities with intermittent claudication, bilateral legs I70.213 ; Pain in right foot M79.671 ; Pain in left foot M79.672 and Other hereditary and idiopathic neuropathies G60.8 [facility] [place] [address] [place] [id number] 06/30/2024 GUERLINE SNOOK Tinea unguium B35.1 ; Acquired keratosis [keratoderma] palmaris et plantaris L85.1 ; Atherosclerosis of [place] arteries of extremities with intermittent claudication, bilateral legs I70.213 ; Pain in right foot M79.671 ; Pain in left foot M79.672 and Other hereditary and idiopathic neuropathies G60.8 [facility] [address] [facility] [address] [place], [place] [id number] 10/15/2023 GUERLINE SNOOK Assessments Encounter Date Diagnosis (ICD Code) Assessment Notes Treatment Notes Treatment Clinical Notes Section Notes 10/15/2023 Tinea unguium (ICD-10 - B35.1) Nails 1-5 Bilateral were debrided extensively with nail nippers and emery board, reducing length and girth to pink healthy tissue with any subungual debris and necrotic tissue removed 10/15/2023 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.1) A total of 3 corns or calluses, as described in the note above, were cut and pared utilizing a #15 blade 01/14/2024 Tinea unguium (ICD-10 - B35.1) Nails 1-5 Bilateral were debrided extensively with nail nippers and emery board, reducing length and girth to pink healthy tissue with any subungual debris and necrotic tissue removed 01/14/2024 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.1) A total of 3 corns or calluses, as described in the note above, were cut and pared utilizing a #15 blade 03/31/2024 Tinea unguium (ICD-10 - B35.1) Nails [...] cut and pared utilizing a #15 blade 06/30/2024 Tinea unguium (ICD-10 - B35.1) Nails 1-5 Bilateral were debrided extensively with nail nippers and emery board, reducing length and girth to pink healthy tissue with any subungual debris and necrotic tissue removed 06/30/2024 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.1) A total of 3 corns or calluses, as described in the note above, were cut and pared utilizing a #15 blade 09/01/2024 Tinea unguium (ICD-10 - B35.1) Nails 1-5 Bilateral were debrided extensively with nail nippers and emery board, reducing length and girth to pink healthy tissue with any subungual debris and necrotic tissue removed 09/01/2024 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.1) A total of ___ corns or calluses, as described in the note above, were cut and pared utilizing a #15 blade 09/01/2024 Atherosclerosis of [place] arteries of extremities with intermittent claudication, bilateral legs (ICD-10 - I70.213) 03/31/2024 Atherosclerosis of [place] arteries of extremities with intermittent claudication, bilateral legs (ICD-10 - I70.213) 06/30/2024 Atherosclerosis of [place] arteries of extremities with intermittent claudication, bilateral legs (ICD-10 - I70.213) 10/15/2023 Atherosclerosis of [place] arteries of extremities with intermittent claudication, bilateral legs (ICD-10 - I70.213) 01/14/2024 Atherosclerosis of [place] arteries of extremities with intermittent claudication, bilateral legs (ICD-10 - I70.213) 10/15/2023 Pain in right foot (ICD-10 - M79.671) 01/14/2024 Pain in right foot (ICD-10 - M79.671) 03/31/2024 Pain in right foot (ICD-10 - M79.671) 06/30/2024 Pain in right foot (ICD-10 - M79.671) 09/01/2024 Pain in right foot (ICD-10 - M79.671) 09/01/2024 Pain in left foot (ICD-10 - M79.672) 06/30/2024 Pain in left foot (ICD-10 - M79.672) 03/31/2024 Pain in left foot (ICD-10 - M79.672) 01/14/2024 Pain in left foot (ICD-10 - M79.672) 10/15/2023 Pain in left foot (ICD-10 - M79.672) 01/14/2024 Other hereditary and idiopathic neuropathies (ICD-10 - G60.8) Patient is still awaiting a NCV/EMG test from [facility] 10/15/2023 Other hereditary and idiopathic neuropathies (ICD-10 - G60.8) Patient was referred out for NCV/EMG testing 03/31/2024 Other hereditary and idiopathic neuropathies (ICD-10 - G60.8) 06/30/2024 Other hereditary and idiopathic neuropathies (ICD-10 - G60.8) Plan Of Treatment Next Appt Details Provider Name:GUERLINE NAIDU, 02:00:00 PM, [address], [facility], [place], [place], [phone], Insurance Providers Payer Name Payer Address Payer Phone Subscriber Number Group Number Insured Name Patient Relationship to Insured Coverage Start Date Coverage End Date AARP MedicareCom plete ([facility]) [address] [place], [place] [phone] [id number] ROSA TSAI Self - patient is the insured Medical (General) History Medical History History ICD Code dementia Blood transfusion restless leg syndrome family member
--- OUTSIDE RECORDS SUMMARY | 2024-09-12 03:11 | XMS_ITS ---
Author Organization [facility] Address [address] [place], [place] [phone] Care Team Providers Care Pediatrician Name Role Phone GUERLINE NAIDU Unavailable [phone] Jennifer Gillis Unavailable Unavailable REASON FOR VISIT Patient presents for at-risk foot care . The patient has painful toenails and calluses that are causing difficulty with ambulation and shoegear. The onset is gradual Vital Signs Weight 220 lbs 06/30/2024 Weight-kg 99.79 kg 06/30/2024 Height 71.00 in 06/30/2024 Height-cm 180.34 cm 06/30/2024 BMI 30.68 kg/m2 06/30/2024 Encounters Encounter Location Date Provider Diagnosis [facility] [place] [address] [place], [place] [phone] 06/30/2024 GUERLINE NAIDU Tinea unguium B35.1 ; Acquired keratosis [keratoderma] palmaris et plantaris L85.1 ; Atherosclerosis of [place] arteries of extremities with intermittent claudication, bilateral legs I70.213 ; Pain in right foot M79.671 ; Pain in left foot M79.672 and Other hereditary and idiopathic neuropathies G60.8 Assessments Encounter Date Diagnosis (ICD Code) Assessment Notes Treatment Notes Treatment Clinical Notes Section Notes 06/30/2024 Tinea unguium (ICD-10 - B35.1) Nails [...] and pared utilizing a #15 blade 06/30/2024 Atherosclerosis of [place] arteries of extremities with intermittent claudication, bilateral legs (ICD-10 - I70.213) 06/30/2024 Pain in right foot (ICD-10 - M79.671) 06/30/2024 Pain in left foot (ICD-10 - M79.672) 06/30/2024 Other hereditary and idiopathic neuropathies (ICD-10 [...] Name:GUERLINE NAIDU, 02:00:00 PM, [address], [address], [phone], Progress Notes * STARR TSAIOB:1940 ([age] yo M)Acc No.[id number]:06/30/2024 Patient: Waleska RON ROSA Provider: Christy Naidu DPM :1940 A ge:83 Y S ex:Male Date:06/30/2024 Address:[facility] [address], [facility] Subjective: * Chief Complaints: * Akhil henning presents for at-risk foot care . The patient has painful toenails and calluses that are causing difficulty with ambulation and shoegear. The onset is gradual * HPI: H PI: General care Akhil henning presents to the office for at risk foot care. Patient states that their nails are thickened, elongated and painful. Patient states that it is aggravated by shoe gear. Onset is gradual. Patient denies being diabetic., Patient is taking prescription blood thinners. D ate last seen by Dr. Gillis was January 2024. I nitials ars.? * ROS: G eneral / Constitutional: Patient [...] n umbness, burning/ tingling. * Medical History: * Surgical History: * Hospitalization/Major Diagno stic Procedure: * Social History: M igrated Social History: M igrated Social History: Alcohol intake : , Smoking Status :. * Medications: Objective: * Vitals: W t: 220 lbs, Wt-k.79 kg, Ht: 71.00 in, Ht-cm: 180.34 cm, BMI: 30.68 Index, Body Surface Area: 2.23. * Examination: P hysical Examination: General appearance: [...] Edema: N o edema bilateral. N eurologic: Edmeston-Weinstin 5.07 monofilament a bsent sensorium to rearfoot via 5.07g monofilament.. M usculoskeletal: Muscle Strength M uscle strength is 5/5 in regards to dorsiflexion, plantarflexion, inversion, and eversion in bilateral lower extremities. ? Assessment: * Assessment: 1. T inea unguium - B35.1 (Primary) 2 . A cquired keratosis [keratoderma] palmaris et plantaris - L85.1 3 . A therosclerosis of [place] arteries of extremities with intermittent claudication, bilateral [...] and pared utilizing a #15 blade * Procedure Codes: * Follow Up: 1 0 - 12 weeks (Reason: At-Risk Foot care, sooner if problems develop.) * Billing Information: * Visit Code: 82038 Office Visit, Est Pt., Level 3. * Procedure Codes: * INE CLOTHING REPLACER Sign off status: Completed true * Provider: Christy Naidu DPM Date: 0 06/30/2024 Generated for Gladys mendoza/Joyce/Kate on: 0 09/12/2024 03:11 AM CDT History and Physical Notes * HPI (History of Present Illness) Category Sub-Category Detail Notes Category Not es HPI General care Patient presents to the office for at risk foot care. Patient states that their nails are thickened, elongated and painful. Patient states that it is aggravated by shoe gear. Onset is gradual. Patient denies being diabetic., Patient is taking prescription blood thinners. Date last seen by Dr. Gillis was January 2024. Initials ars Examination Category Sub-Category Detail Notes Category Not es Dermatologic Skin findings: Skin is thin, at rophic and lacking pedal hair. Nail pathology: Nails 1-5 bilateral are elongated, thick, discolored, and dystrophic with subungual debris. They are painful to palpation Hypertrophic / hyperkeratotic lesion: di stal aspect of the right 3rd digit, plantar aspect of the left and right 1st metatarsal head Neurologic Edmeston-Weinstin 5.07 monofilamen t absent sensorium to rearfoot [...]
--- OUTSIDE RECORDS SUMMARY | 2024-09-12 03:11 | XMS_ITS | Clinical Summary ---
Author Organization [facility] Address [address] [place] [address] Care Team Providers Care Osteology Teacher Name Role Phone Unavailable Primary Care Provider Unavailabl e Source Comments [facility],non-owned Affiliates and Associated Physician Practices is amultiple site organization consisting of ambulatory clinics and hospital sitesin [place], [place], [place] and [place]. This disclosure is being madepursuant to the Care Everywhere program and may not contain all information available regarding this patient. Last updated 18.[facility] [employer] Allergies Active Allergy Reactions Criticality Noted Date Comments Aspirin Other 06/14/2020 Not stated Codeine Other 06/14/2020 Not stated Medications * Be aware that medications may not be up to date on this document. Alwaysverify current medications with the patient. Medication Sig Dispensed Refills Start Date End Date Status fluticasone-salmet erin (ADVAIR/WIXELA) 100-50 MCG/DOSE inhaler Inhale 1 puff by mouth 2 times daily Active atorvastatin (LIPITOR) 80 MG tablet Take 80 mg by mouth at bedtime Active finasteride (PROSCAR) 5 MG tablet Take 5 mg by mouth once daily Active multivitamin daily tablet Take 1 tablet by mouth daily with food Active sildenafil (VIAGRA) 50 MG tablet Take 50 mg by mouth once as needed Active tadalafil (CIALIS) 5 MG tablet Take 5 mg by mouth once as needed Active apixaban (ELIQUIS) 5 MG tablet Take 1 (one) tablet by mouth 2 times daily 60 tablet 2 06/24/2020 Active docusate sodium (COLACE) 100 MG capsule Take 1 (one) capsule by mouth 2 times daily as needed for Constipation 06/24/2020 Active melatonin 3 MG tablet Take 1 (one) tablet by mouth nightly as needed for Insomnia 06/24/2020 Active metoprolol tartrate (LOPRESSOR) 25 MG tablet Take 0.5 (one-half) tablet by mouth 2 times daily 30 tablet 06/24/2020 Active tamsulosin (FLOMAX) 0.4 MG capsule Take 1 (one) capsule by mouth once daily At the same time every day after a meal. 30 capsule 06/25/2020 Active oxyCODONE, immediate release, (ROXICODONE) 5 MG tablet Take 1 (one) tablet by mouth every 6 hours as needed for Pain 20 tablet 06/24/2020 Active Active Problems Problem Noted Date Diagnosed Date Diastolic dysfunction, left ventricle 06/15/2020 AAA (abdominal aortic aneurysm, ruptured) 2020 Longstanding persistent atrial fibrillation 12/02 History of mitral valve repair 07/21/2013 Hx of CABG 07/21/2013 Hypertension 07/21/2013 Immunizations Name Administration Dates Next Due INFLUENZA VACCINE, HIGH-DOSE , QUADR. (FLUZONE HIGH-DOSE QUADRIVALENT; 65Y+), 0.7 ML (HD-IIV4) 06/19/2020(Deferred: Patient Refused) Social History Tobacco Use Types Packs/Day Years Used Date Smoking Tobacco: Never Smokeless Tobacco: Never Alcohol Use Standard Drinks/Week Comments Never 0 (1 standard drink = 0.6 oz pur e alcohol) AUDIT-C Answer Date Recorded Q1: How often do you have a drink containing alc ohol? Never 06/14/2020 Average Number of Drinks Not on file 021 Frequency of Binge Drinking Not on file 06/04 Sex and Gender Information Value Date Recorded Sex Assigned at Not on file Gender Identity Male 06/16/2020 12:20 AM LAST [facility]ER Sexual Orientation Not on file Last Filed Vital Signs Vital Sign Reading Time Taken Comments Blood Pressure 131/68 06/24/2020 8:02 PM LAST [facility]ONER Pulse 99 06/24/2020 8:02 PM LAST IRONER Temperature 36.9 C (98.5 F) 06/24/2020 8:02 PM LAST IRONER Respiratory Rate 18 06/24/2020 8:02 PM LAST IRONER Oxygen Saturation 95% 06/24/2020 8:02 PM LAST IRONER Inhaled Oxygen Concentration 40% 06/17/2020 1 :00 AM LAST IRONER Weight 100 kg (220 lb 7.4 oz) 06/24/2020 4:00 AM LAST IRONER Height 177.8 cm (5' 10 ) 06/15/2020 12:32 PM LAST IRONER Body Mass Index 31.63 06/15/2020 12:32 PM LAST IRONER Plan of Treatment Health Maintenance Due Date Last Done Comments DTAP/TDAP/TD VACCINES (1 - Tdap) 10/15/1959 PNEUMOCOCCAL VACCINE 50+ (1 of 1 - PCV) 10/15/1989 ZOSTER VACCINE (1 of 2) 10/15/1989 Respiratory Syncytial Virus (RSV) Vaccine Pt: or over 60 yrs (1 - 1-dose 75+ series) 10/15/2014 COVID-19 VACCINE ( - 2023-2 5 season) 2024 DEPRESSION SCREENING 06/04/2024 MEDICARE AWV CALENDAR YEAR 2024 INFLUENZA VACCINE (Season Ended) 2025 04/12/2015, 04/08/2014 HEPATITIS B VACCINE Aged Out No longe r eligible based on patient's age to complete this topic HIB VACCINE Aged Out No longer eligi ble based on patient's age to complete this topic HPV VACCINE Aged Out No longer eligi ble based on patient's age to complete this topic MENINGOCOCCAL (Group B) VACCINE SHARED DECISION-MAKING Aged Out No longer eligible based on patient's age to complete this topic MENINGOCOCCAL GROUPS A/C/Y/W VACCINE Aged Out No longer eligible b ased on patient's age to complete this topic Medical Devices Implanted Type Area Cosmetician Apprentice Device Identifier Shelf Expiration Date Model / Serial / Lot Graft Excluder C3 Endovasc 31mm 14.5mm - [id number] Implanted:Qty: 1 on 06/14/2020 by Kim Joy MD at [facility] Right: Aorta [employer] 04/20/2022 [id number] / [id number] / Description:aorto left iliac Graft Atlas Excluder Endovasc 14.5mm 12cm - [id number] Implanted:Qty: 1 on 06/14/2020 by Kim Joy MD at [facility] Right: Arterial [employer] 03/03/2022 [id number] / [id number] / Description:right iliac shakira ry/ apart of total Advance Directives * Full Code (Latest Code Status on File) Date Activated Date Inactivated Comments 06/14/2020 4:54 PM 06/24/2020 9:59 PM
--- OUTSIDE RECORDS SUMMARY | 2024-09-12 03:11 | XMS_ITS ---
Author Organization [facility] Address [address] [place], [place] [id number] Care Team Providers Care Pipe Stripper Name Role Phone SHANNAOtilio GUERLINE Unavailable [phone] Jennifer Gillis Unavailable Unavailable Allergies No Known Allergies REASON FOR VISIT The patient is unaware of the blood on his right 3rd toe, Patient presents for at-risk foot care . The patient has painful toenails and calluses that are causing difficulty with ambulation and shoegear. The onset is gradual Medications Medication SIG (Take, Route, Frequency, Duration) Notes Start Date End Date Status Eliquis 5 MG as directed Orally Active Atorvastatin Calcium 80 MG Oral for 90 Days Active Vital Signs Weight 220 lbs 09/01/2024 Weight-kg 99.79 kg 09/01/2024 Height 71.00 in 09/01/2024 Height-cm 180.34 cm 09/01/2024 BMI 30.68 kg/m2 09/01/2024 Encounters Encounter Location Date Provider Diagnosis [facility] [address] [place], [place] [id number] 09/01/2024 GUERLINE NAIDU Tinea unguium B35.1 ; Acquired keratosis [keratoderma] palmaris et plantaris L85.1 ; 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, bilateral legs I70.213 ; Pain in right foot M79.671 and Pain in left foot M79.672 Assessments Encounter Date Diagnosis (ICD Code) Assessment Notes Treatment Notes Treatment Clinical Notes Section Notes 09/01/2024 Tinea unguium (ICD-10 - B35.1) Nails [...] utilizing a #15 blade 09/01/2024 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, bilateral legs (ICD-10 - I70.213) 09/01/2024 Pain in right foot (ICD-10 - M79.671) 09/01/2024 Pain in left foot (ICD-10 - M79.672) Plan Of Treatment Treatment Notes Assessment Notes Tinea unguium Nails 1-5 Bilateral were debrided extensively with nail nippers and emery board, reducing length and girth to pink healthy tissue with any subungual debris and necrotic tissue removed Acquired keratosis [keratode rma] palmaris et plantaris A total of ___ corns or calluses, as described in the note above, were cut and pared utilizing a #15 blade Next Appt Details Follow Up: 10 - 12 weeks, Re ason: At-Risk Foot care, sooner if problems develop. Provider Name:GUERLINE NAIDU, 02:00:00 PM, [address], [address], [id number], Progress Notes * STARR TSAIOB:1940 ([age] yo M)Acc No.[id number]:09/01/2024 Patient: Waleska ROSA VELASQUEZ Provider: Christy Naidu DPM :1940 A ge:83 Y S ex:Male Date:09/01/2024 Address:[facility] [address], [facility], [id number] Subjective: * Chief Complaints: * 1 . The patient is unaware of the blood on his right 3rd toe. 2. Patient presents for at-risk foot care . The patient has painful toenails and calluses that are causing difficulty with ambulation and shoegear. The onset is gradual. * HPI: H PI: General care P milady presents to the office for at risk foot care. Patient states that their nails are thickened, elongated and painful. Patient states that it is aggravated by shoe gear. Onset is gradual. Patient denies being diabetic. P milady is taking prescription blood thinners. D ate last seen by Dr. Gillis was August 2024. I nitials IG. * ROS: G eneral / Constitutional: Patient denies c hills, fever, weight loss. ? C ardiovascular: Patient denies e hadley, shortness of breath. ? M usculoskeletal: Patient denies w eakness, broken foot bone. ? S kin: Patient complains of f ungal nails, nail changes, calluses and corns. N eurologic: Patient denies b alance difficulty, confusion, difficulty speaking, dizziness. P atcassie complains of n umbness, burning/ tingling. * Medical History: D ementia, Blood transfusion, Restless leg syndrome, Family member . * Surgical History: D enies Past Surgical History. * Hospitalization/Major Diagno stic Procedure: D enies Past Hospitalization. * Family History: N on-Contributory. * Social History: M igrated Social History: M igrated Social History: Alcohol intake : , Smoking Status :. * Medications: T aking Eliquis 5 MG Tablet as directed Orally , Taking Atorvastatin Calcium 80 MG Tablet Oral , Medication List reviewed and reconciled with the patient * Allergies: N .K.D.A. Objective: * Vitals: S hoe Size: 11, Wt: 220 lbs, Wt-k.79 kg, Ht: 71.00 in, Ht-cm: 180.34 cm, BMI: 30.68 Index, Body Surface Area: 2.23. * Examination: P hysical Examination: General appearance: A lert, pleasant, well-nourished and in no acute distress. D ermatologic: Skin findings: S joslyn is thin, atrophic and lacking pedal hair.. Hypertrophic / hyperkeratotic lesion: d istal aspect of the right 3rd digit, plantar aspect of the left and right 1st metatarsal head. There is dried sanguinous material to the right 3rd digit. No open wound, no active bleeding noted. Nail pathology: N ails 1-5 bilateral are elongated, thick, discolored, and dystrophic with subungual debris. They are painful to palpation. ? V ascular: Dorsalis pedis pulse: 0 /4, bilateral. Posterior tibial pulse: 1 /4, bilaterally. Capillary refill: g reater than 3 seconds. Edema: N o edema bilateral. N eurologic: [place] 5.07 monofilament a bsent sensorium to rearfoot via 5.07g monofilament.. M usculoskeletal: Muscle Strength M uscle strength is 5/5 in regards to dorsiflexion, plantarflexion, inversion, and eversion in bilateral lower extremities. ? Assessment: * Assessment: 1. T inea unguium - B35.1 (Primary) 2 . A cquired keratosis [keratoderma] palmaris et plantaris - L85.1 3 . 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 P ain in right foot - M79.671 5 . P ain in left foot - M79.672 Plan: * Treatment: 2. A cquired keratosis [keratoderma] palmaris et plantaris Notes: A total of ___ corns or calluses, as described in the note above, were cut and pared utilizing a #15 blade * Follow Up: 1 0 - 12 weeks (Reason: At-Risk Foot care, sooner if problems develop.) * Billing Information: * Visit Code: 69139 Office Visit, Est Pt., Level 3. * Procedure Codes: * Electronic signature of GUERLINE NAIDU DPM on 09/12/2024 at 03:10 AM CDT Sign off status: Pending * Provider: Christy Naidu DPM Date: 0 09/01/2024 Generated for Gladys mendoza/Joyce/Kate on: 0 09/12/2024 03:10 AM CDT History and Physical Notes * HPI (History of Present Illness) Category Sub-Category Detail Notes Category Not es HPI General care Patient presents to the office for at risk foot care. Patient states that their nails are thickened, elongated and painful. Patient states that it is aggravated by shoe gear. Onset is gradual. Patient denies being diabetic. Patient is taking prescription blood thinners. Date last seen by Dr. Gillis was August 2024. Initials IG Examination Category Sub-Category Detail Notes Category Not es Dermatologic Skin findings: Skin is thin, at rophic and lacking pedal hair. Nail pathology: Nails 1-5 bilateral are elongated, thick, discolored, and dystrophic with subungual debris. They are painful to palpation Hypertrophic / hyperkeratotic lesion: di stal aspect of the right 3rd digit, plantar aspect of the left and right 1st metatarsal head. There is dried sanguinous material to the right 3rd digit. No open wound, no active bleeding noted Neurologic [place] 5.07 monofilamen t absent sensorium to rearfoot [...]
[2024-09-12 03:14] LABS: INR 1.4
[2024-09-12 03:15] LABS: Partial Thromboplastin Time 38.5 Seconds (22.3-36.8)
[2024-09-12 03:24] LABS: Troponin I 0.157 ng/mL (0.000-0.034)
[2024-09-12 03:28] LABS: Procalcitonin 0.2 ng/mL
[2024-09-12 03:37] LABS: Influenza A QL RT-PCR Negative (Negative); Influenza B QL RT-PCR Negative (Negative); RSV RNA, RT-PCR Negative (Negative); SARS-CoV-2 RNA PCR Negative (Negative)
--- NOTE | 2024-09-12 04:11 | ED_ITS ---
HPI - General Adult General Chief complaint: Weakness Stated complaint: MULTIPLE FALLS, GENERALIZED WEAKNESS Time Seen by Provider: 09/12/24 02:27 History of Present Illness HPI narrative: Patient 83-year-old gentleman presents emergency department chief complaint of generalized weakness and frequent falls. This patient states that he has chronic neck pain reports this evening he got up and his legs just gave out on a the patient states that he had no unilateral weakness reports that his blood sugars been running in the 130s reports that after falling several times today of EMS recommended that he come to the emergency department patient does have prior history of abdominal aortic aneurysm that has been repaired the patient is on anticoagulant Related Data Home Medications ?Medication ?Instructions ?Recorded ?Confirmed ?Last Taken ?Type apixaban 5 mg tablet (Eliquis) 5 mg PO 06/14/20 Unknown History atorvastatin 80 mg tablet 80 mg PO DAILY 06/14/20 Unknown History lisinopril 10 mg tablet 10 mg PO DAILY 06/14/20 Unknown History Allergies Allergy/AdvReac Type Severity Reaction Status Date / Time nickel AdvReac Intermediate Rash Verified 06/14/20 14:08 Chocolate Allergy Intermediate Diarrhea Uncoded 06/14/20 14:08 Review of Systems 2 Review of Systems: A 10 system review of systems was completed on the patient and is negative except for what is stated in the HPI. Nursing and ancillary documentation was reviewed. [facility] Family History Family History Father Cerebrovascular accident Mother Family history of cardiac disorder Other Asthma Family history of allergic disorder Family history of cardiovascular disease Family history of malignant neoplasm Social History Social History Alcohol intake: current Gender identity (if verbalized by the patient): Male Exam 2 Narrative: GENERAL: Well-appearing, well-nourished, and in no acute distress. HEAD: Normocephalic, atraumatic. EYES: PERRLA and EOMI. ENT: Nares clear, no rhinorrhea or epistaxis. Mucous membranes moist. NECK: Supple. CHEST: Clear to auscultation. No respiratory distress. HEART: Regular rate and rhythm. No murmur heard. Normal peripheral pulses. ABDOMEN: Soft, nontender, nondistended, normal active bowel sounds. EXTREMITIES: Normal range of motion. No edema. SKIN: Warm, dry, no rash. NEURO: No focal deficits. Alert and oriented x2-3. PSYCH: Normal mood and affect. Course Vital Signs Vital signs: Vital Signs Temperature 37.0 C 09/12/24 02:23 Pulse Rate 87 09/12/24 02:23 Respiratory Rate 18 09/12/24 02:23 Blood Pressure 165/99 H 09/12/24 02:23 Pulse Oximetry 95 09/12/24 02:23 Oxygen Delivery Room Air 09/12/24 02:23 Temperature 37.0 C 09/12/24 02:23 Pulse Rate 86 09/12/24 06:03 Respiratory Rate 13 09/12/24 06:01 Blood Pressure 134/83 09/12/24 06:01 Pulse Oximetry 98 09/12/24 06:01 Oxygen Delivery Room Air 09/12/24 02:23 Medical Decision Making MDM Narrative Medical decision making narrative: Differential diagnosis includes pulmonary embolism, increase in size of abdominal aortic aneurysm, intracranial hemorrhage, cervical spine fracture. CT head showed no acute abnormality CT C-spine showed no evidence of fracture Laboratory studies did show a slightly elevated troponin the patient is currently having no chest pain CTA chest was obtained to evaluate for possible pulmonary embolism this showed no evidence of PE While the patient underwent a CTA of the chest abdomen pelvis CT was obtained this showed that the abdominal aortic aneurysm had increased in size from 8 cm in 2020 to 10 cm there was a endograft present but there was evidence of a possible leak of the in the graph given this the case was discussed with vascular surgery at [facility] where the patient had previously had his repair done at vascular recommended transferring the patient to [facility] been having the patient admitted to the hospitalist service as his generalized weakness and elevated troponin will need to be worked up 1st and vascular will then be involved with potential repair of the previous repair The case was discussed with the medicine team at [facility] and patient was accepted by Dr. Nichols Vital Signs Vital Signs: Vital Signs Temperature 37.0 C 09/12/24 02:23 Pulse Rate 87 09/12/24 02:23 Respiratory Rate 18 09/12/24 02:23 Blood Pressure 165/99 H 09/12/24 02:23 Pulse Oximetry 95 09/12/24 02:23 Oxygen Delivery Room Air 09/12/24 02:23 Temperature 37.0 C 09/12/24 02:23 Pulse Rate 86 04/11/25 06:03 Respiratory Rate 13 09/12/24 06:01 Blood Pressure 134/83 09/12/24 06:01 Pulse Oximetry 98 09/12/24 06:01 Oxygen Delivery Room Air 09/12/24 02:23 Lab Data 09/12/24 02:54 09/12/24 02:54 Labs: Lab Results 09/12/24 Range/Units 02:54 WBC 9.8 (4.5-10.0) K/mm3 RBC 3.87 L (4.6-6.20) M/mm3 Hgb 12.3 L (14.0-18.0) g/dL Hct 37.2 L (42.0-52.0) % MCV 96.1 (80-100) fl MCH 31.8 (26-34) pg MCHC 33.1 (32-36) g/dl RDW 13.3 (11.5-14.5) % Plt Count 172 (150-375) k/mm3 MPV 10.5 H (7.4-10.4) fl Immature Gran % (Auto) 0.3 (0-0.5) % Neut % (Auto) 84.8 H (45.5-73.1) % Lymph % (Auto) 5.8 L (18.3-44.2) % [place] % (Auto) 8.1 (2.6-8.5) % Eos % (Auto) 0.6 (0-4.4) % Baso % (Auto) 0.4 (0.2-1.2) % Lymph # (Auto) 0.57 L (0.9-3.2) K/mm3 [place] # (Auto) 0.8 H (0.1-0.6) K/mm3 Eos # (Auto) 0.1 (0-0.3) K/mm3 Baso # (Auto) 0.0 (0.0-0.1) K/mm3 Abs Immat Gran (auto) 0.03 (0.00-0.031) K/mm3 Absolute Neuts (auto) 8.3 H (1.3-6.7) K/mm3 Absolute Nucleated RBC 0.000 (0.0-0.012) K/mm3 Nucleated RBC % 0.0 (0.0-0.2) % PT 18.0 H (11.1-14.7) Seconds INR 1.4 APTT 38.5 H (22.3-36.8) Seconds Sodium 140 (137-145) mmol/L Potassium 4.0 (3.4-5.0) mmol/L Chloride 105 (98-107) mmol/L Carbon Dioxide 23 (22-30) mmol/L Anion Gap 12 (4-12) mmol/L BUN 53 H D (9-20) mg/dL Creatinine 1.93 H (0.7-1.3) mg/dL Estim Creat Clear Calc Not Reportable Estimated GFR 33 L (59 - ) Glucose 132 H (65-110) mg/dL Lactic Acid 1.1 (0.7-2.0) mmol/L Calcium 9.0 (8.4-10.2) mg/dL Magnesium 1.9 (1.6-2.3) mg/dL Total Bilirubin 1.0 (0.2-1.3) mg/dL AST 81 H (17-59) U/L ALT 40 (6-50) U/L Alkaline Phosphatase 71 (38-126) U/L Troponin I 0.157 H* (0.000-0.034) ng/mL Total Protein 8.0 (6.3-8.2) g/dL Albumin 3.8 (3.5-5.1) g/dL Lipase 42 (23-300) U/L Procalcitonin 0.2 ng/mL Influenza A (RT-PCR) Negative (Negative) Influenza B (RT-PCR) Negative (Negative) RSV (RT-PCR) Negative (Negative) SARS-CoV-2 RNA (RT-PCR) Negative (Negative) Discharge Plan Discharge Clinical Impression: Generalized weakness, Frequent falls, Elevated troponin, Abdominal aortic aneurysm Patient Disposition: Acute Care Hospital Condition: Stable Patient Language: Pakistani Prescriptions: No Action atorvastatin 80 mg tablet 80 mg PO DAILY lisinopril 10 mg tablet 10 mg PO DAILY Eliquis 5 mg tablet 5 mg PO Follow-up/Referrals: Devonte,Carmela Rodriguez MD [Primary Care Provider] -
[2024-09-12 06:57] LABS: Add Urine Microscopic? YES; Appearance Urine Cloudy (Clear); Bacteria Urine None Seen /hpf; Bilirubin Urine Negative (Negative); Blood Urine 1+ (Negative); Color Urine Yellow (Yellow); Glucose Urine UA Negative (Negative); Ketones Urine Negative (Negative); Leukocyte Esterase Ur 3+ LEU/UL (Negative); Nitrate Urine Negative (Negative); Protein Urine 1+ mg/dL (Negative); RBC Urine 0-2 /hpf (0-2); Specific Grav Ur 1.026 (1.001-1.035); Squamous Epithelial Cell Urine None Seen /hpf (Few); Urobilinogen Urine 0.2 mg/dL (<2.0); WBC Urine >100 /hpf (0-3); pH Urine 5.5 (5.0-9.0)
--- NOTE | 2024-09-12 07:09 | ECG_ITS ---
Test Date: 2024-09-12 07:17:17 Measurements Intervals [place] Rate: 85 P: 0 AR: 0 QRS: 62 QRSD: 85 T: 0 QT: 379 QTc: 452 Interpretive Statements ATRIAL FLUTTER LEFT VENTRICULAR HYPERTROPHY WITH ST-T CHANGE CANNOT R/O SEPTAL INFARCT, AGE INDETERMINATE BORDERLINE ST-T WAVE ABNORMALITY- ANT/INF LEADS ABNORMAL ECG Compared to ECG 09/12/2024 04:40:19 No significant changes Electronically Signed On 09-12-2024 08:22:00 CDT by Ezekiel Zacarias D.O.
[2024-09-12 09:13] LABS: Hematocrit 36.8 % (42.0-52.0)
--- NOTE | 2024-09-12 16:10 | PC.NURSE ---
This RN spoke with Liliam at [facility] pt logistics who states pt has a bed and will be assigned to bed [address]. States number for report is [phone] This RN called report to [facility] hospital and spoke with Marilee STONER, all questions answered
[2024-09-12 17:02] LABS: Hematocrit 38.1 % (42.0-52.0); Hemoglobin 12.5 g/dL (14.0-18.0)
== END 2024-09-12 19:09 | disposition short-term general hospital (02) ==
PROVIDERS: Emergency Medicine; Emergency Provider Emergency Medicine; PCP Family Medicine
DX: R53.1 Weakness (principal); R79.89 Other specified abnormal findings of blood chemistry; I71.40 Abdominal aortic aneurysm, without rupture, unspecified; R29.6 Repeated falls; Z20.822 Contact with and (suspected) exposure to COVID-19; Z79.01 Long term (current) use of anticoagulants; Z79.899 Other long term (current) drug therapy; I48.92 Unspecified atrial flutter; I51.7 Cardiomegaly; R94.31 Abnormal electrocardiogram [ECG] [EKG]
CPT/HCPCS: 36415; 70450; 71045; 71275; 72125; 74177; 80053; 81001; 83605; 83690; 83735; 84145; 84484; 85014; 85018; 85025; 85610; 85730; 87086; 87637; 93005; 99285; Q9967